=== PATIENT | female | born 1970 | race Caucasian/White ===

== ENCOUNTER 2019-12-19 17:48 | Emergency (ER) | payer BC ==
[~2019-12-19] VITALS: Ht 167.6 cm; Wt 72.6 kg
[2019-12-19 17:48] VITALS: BP_SYST 149
== END 2019-12-19 20:14 | disposition left against medical advice (07) ==
LOC: SED 17:48
DX: F41.9 Anxiety disorder, unspecified (principal); Z53.21 Procedure and treatment not carried out due to patient leaving prior to being seen by health care provider

== ENCOUNTER 2019-12-19 19:57 | Emergency (ER) | payer BC ==
[~2019-12-19] VITALS: Ht 167.6 cm; Wt 81.6 kg
[2019-12-19 20:05] VITALS: BP_SYST 128
[2019-12-19] MEDS ORDERED: NORMAL SALINE 5 ML DISP.SYRIN IVF SCH (20:45)
[2019-12-19 20:55] LABS: BASOPHILS % (AUTO) 0.6 % (0.0-2.0); EOSINOPHILS # (AUTO) 0.1 K/uL (0.0-0.4); EOSINOPHILS % (AUTO) 1.4 % (0.0-4.0); HEMATOCRIT 40.4 % (36-48); HEMOGLOBIN 13.6 g/dL (12.0-16.0); LYMPHOCYTES # (AUTO) 2.5 K/uL (1.0-5.5); LYMPHOCYTES % (AUTO) 44.4 % (20.5-51.5); MEAN CORPUSCULAR HEMOGLOBIN 32 pg (27-31); MEAN CORPUSCULAR HGB CONC 34 % (32-36); MEAN CORPUSCULAR VOLUME 94 fL (79.0-98.0); MONOCYTES # (AUTO) 0.4 K/uL (0.0-1.0); MONOCYTES % (AUTO) 6.6 % (1.7-9.3); NEUTROPHILS # (AUTO) 2.7 K/uL (1.8-7.7); PLATELET COUNT (AUTO) 279 K/uL (130-430); RED BLOOD CELL COUNT(AUTO) 4.32 MIL/uL (4.2-6.2); RED CELL DISTRIBUTION WIDTH 13.8 % (9.0-15.0); WHITE BLOOD COUNT (AUTO) 5.7 K/uL (4.8-10.8)
[2019-12-19 21:11] LABS: ANION GAP 14 (5-15); CALCIUM 8.9 mg/dL (8.4-11.0); CHLORIDE 102 mmol/L (98-107); CREATININE 0.62 mg/dL (0.55-1.30); GLUCOSE 109 mg/dL (70-99); POTASSIUM 3.7 mmol/L (3.5-5.1); SODIUM SERUM 141 mmol/L (136-145); UREA NITROGEN, BLOOD 7 mg/dL (8-21)
[2019-12-19 21:12] LABS: GFR AFRICAN AMERICAN 132 mL/min (>90)
[2019-12-19] MEDS ORDERED: IBUPROFEN 600 MG TABLET PO ONE (21:30)
[2019-12-19 21:31] LABS: ALANINE AMINOTRANSFERASE 157 U/L (12-78); ALCOHOL, BLOOD 218 mg/dL (<10); ASPARTATE AMINOTRANSFERASE 189 U/L (10-37); BILIRUBIN,DIRECT 0.1 mg/dL (0.0-0.3); FREE T4 (FREE THYROXINE) 1.2 ng/dl (0.8-1.5); HCG,QUANTITATIVE 0 mIU/ML (0-6); LIPASE 234 U/L (73-393); THYROID STIMULATING HORMONE 4.81 uIu/mL (0.36-3.74); TOTAL BILIRUBIN 0.2 mg/dL (0.0-1.0)
[2019-12-19 21:52] LABS: ACETAMINOPHEN < 1 ug/mL (1-30)
[2019-12-19 23:00] VITALS: BP_SYST 122
== END 2019-12-19 23:00 | disposition home or self-care (01) ==
LOC: SED 19:57
DX: F10.129 Alcohol abuse with intoxication, unspecified (principal)
CPT/HCPCS: 36415; 76700; 80048; 80076; 83690; 84439; 84443; 84702; 85025; 99285; G0480; G0481; G0482; 93005